=== PATIENT | female | born 1980 | race Caucasian/White ===

== ENCOUNTER 2019-08-04 22:32 | Inpatient (IN) | payer BC, OTHER ==
[~2019-08-04] VITALS: Ht 172.7 cm; Wt 75.8 kg
[2019-08-04 23:26] LABS: Basophils # (auto) 0 10 ^3/uL (0-0.2); Eosinophils # (auto) 0.2 10 ^3/uL (0-0.8); Eosinophils % (auto) 4.5 % (0.0-7.0); Hematocrit 38.2 % (36.0-46.0); Lymphocytes # (auto) 0.6 10 ^3/uL (0.4-5.4); Lymphocytes % (auto) 18.2 % (10.0-50.0); Mean Corpuscular Hemoglobin 36.1 pg (28.0-32.0); Mean Corpuscular Volume 106.1 fL (80.0-100.0); Monocytes # (auto) 0.5 10 ^3/uL (0-1.3); Monocytes % (auto) 13.6 % (0.0-12.0); Neutrophils # (auto) 2.2 10 ^3/uL (1.6-8.6); Neutrophils % (auto) 63.7 % (37.0-80.0); Nucleated Red Blood Cells % 0.1 %; Platelet Count (auto) 202 10^3/uL (140-450); Red Cell Distribution Width 14.8 % (11.8-14.3); White Blood Cell 3.5 10^3/uL (4.4-10.8)
[2019-08-04 23:41] LABS: Albumin 3.3 g/dL (3.4-5.0); Anion Gap 13 (5-15); BUN/Creatinine Ratio 5.7; Blood Urea Nitrogen 5 mg/dL (7-18); Calcium 7.5 mg/dL (8.5-10.1); Carbon Dioxide 26 mmol/L (21-32); Chloride 98 mmol/L (98-107); GFR African American 94 mL/min; GFR Non-African American 78 mL/min; Glucose 145 mg/dL (74-106); Sodium 137 mmol/L (136-145)
[2019-08-04 23:46] LABS: Alanine Aminotransferase 76 U/L (13-56); Alkaline Phosphatase 249 U/L (45-117); Aspartate Aminotransferase 375 U/L (15-37); Bilirubin, Total 2.5 mg/dL (0.2-1.0); Total Protein 7.4 g/dL (6.4-8.2)
[2019-08-04 23:50] LABS: Magnesium 0.5 mg/dL (1.6-2.6); Potassium 2.7 mmol/L (3.5-5.1)
[2019-08-05] MEDS ORDERED: POTASSIUM CHL 20 Meq TABLET PO ONE (00:15)
[2019-08-05] MEDS: MAGNESIUM SULFATE 1GM/100ML 100 ML IV SCH ×4 (00:26→17:00)
[2019-08-05] MEDS ORDERED: ONDANSETRON HCL 4 MG/2 ML VIAL IV ONE (00:30)
[2019-08-05] MEDS ORDERED: SODIUM CHLORIDE 0.9% 1,000 ML IV ONE (00:30)
[2019-08-05] MEDS: POTASSIUM CHL 20MEQ/100ML 100 ML IV SCH ×2 (00:48→03:14)
[2019-08-05] MEDS ORDERED: ACETAMINOPHEN 500 MG TAB PO ONE (01:00)
[2019-08-05] MEDS ORDERED: MORPHINE SULFATE 4 MG/ML SYR/VIAL IV PRN (01:45)
[2019-08-05] MEDS ORDERED: ONDANSETRON HCL 4 MG/2 ML VIAL IV PRN (01:45)
[2019-08-05] MEDS ORDERED: DOCUSATE SOD 100 MG CAP PO PRN (01:45)
[2019-08-05] MEDS ORDERED: TEMAZEPAM 15 MG CAP PO PRN (01:45)
[2019-08-05] MEDS ORDERED: DEXTROSE (50%) 50ML SYRG IV PRN (01:45)
[2019-08-05] MEDS ORDERED: LORazepam 0.5 MG TAB PO PRN ×2 (01:45→02:00)
[2019-08-05] MEDS: chlordiazePOXIDE HCL 25 MG CAP PO SCH ×6 (02:00→21:12)
[2019-08-05] MEDS: SODIUM CHLORIDE 0.9% 1,000 ML IV SCH ×3 (03:13→21:36)
[2019-08-05] MEDS: ACCU-CHEK COMFORT CURVE STRIP VI SCH ×2 (04:00→09:36)
[2019-08-05] MEDS: InsuLIN REG 1unit/0.01ml Soln (100units/ml) SC SCH ×2 (04:00→08:00)
--- NOTE | 2019-08-05 04:31 | NUR ---
Telemetry admit from [facility]AI[facility]ARR[facility]ED[facility] admitted to Telemetry unit after SBAR received. Patient oriented to Elizabeth Lomax, primary RN, unit, room, bed, and unit policies regarding patient care and visiting hours. Patient now on continuous telemetry monitoring, tele box 73# and telemetry reading on arrival to unit is NSR 72. Patient placed on bedside oxygen, weighed by bedscale and encouraged to call if they need something. All questions and concerns addressed, patient verbalized understanding. Note:
[2019-08-05] MEDS: LEVOTHYROXINE SODIUM 25 MCG TAB PO SCH (05:44)
[2019-08-05] MEDS ORDERED: LEVO125T7 PO (06:18)
[2019-08-05] MEDS ORDERED: TRAZ50TA2 PO (06:18)
[2019-08-05] MEDS ORDERED: MONT10TA34 PO (06:18)
[2019-08-05] MEDS ORDERED: BUPR-40 PO (06:18)
[2019-08-05] MEDS ORDERED: LORA-655 PO (06:18)
[2019-08-05] MEDS ORDERED: LEVOTHYROXINE SODIUM 88 MCG TAB PO SCH (07:00)
--- NOTE | 2019-08-05 08:08 | NUR ---
OPENING NOTES ASSUMED CARE OF PT. ALERT AND ORIENTED X4. NO S/S OF SOB OR DISTRESS NOTED. PT C/O OF LEG AND LOWER BACK PAIN. ASKING FOR "IBUPROFEN". STATED TYLENOL IS OK. WILL ADMINISTER ORDERED. INSTRUCTED PT TO CALL FOR ASSISTANCE. UPDATED PT ON POC. BED SET TO LOWEST/LOCKED POSITION. BEDSIDE RAILS UP X2. CALL LIGHT WITHIN REACH. PT VERBALIZED UNDERSTANDING. WILL CONTINUE TO MONITOR Q1HR AND PRN.
[2019-08-05 09:00] VITALS: BP 137/97
[2019-08-05 09:24] LABS: BUN/Creatinine Ratio 6.4; Calcium 7.3 mg/dL (8.5-10.1); Potassium 3.4 mmol/L (3.5-5.1)
[2019-08-05 09:26] LABS: Basophils # (auto) 0.1 10 ^3/uL (0-0.2); Basophils % (auto) 1.8 % (0.0-2.0); Eosinophils # (auto) 0 10 ^3/uL (0-0.8); Eosinophils % (auto) 1.3 % (0.0-7.0); Hematocrit 38.6 % (36.0-46.0); Hemoglobin 13.1 g/dL (12.2-16.2); Lymphocytes # (auto) 0.8 10 ^3/uL (0.4-5.4); Lymphocytes % (auto) 25.4 % (10.0-50.0); Mean Corpuscular Hemoglobin 36.7 pg (28.0-32.0); Monocytes # (auto) 0.5 10 ^3/uL (0-1.3); Monocytes % (auto) 17.2 % (0.0-12.0); Neutrophils # (auto) 1.7 10 ^3/uL (1.6-8.6); Neutrophils % (auto) 54.3 % (37.0-80.0); Nucleated Red Blood Cells % 0.1 %; Platelet Count (auto) 187 10^3/uL (140-450); Red Blood Cells 3.58 10^6/uL (4.0-5.20); White Blood Cell 3.1 10^3/uL (4.4-10.8)
[2019-08-05] MEDS: CYANOCOBALAMIN 500 MCG TAB PO SCH (09:34)
[2019-08-05] MEDS: ACETAMINOPHEN 325 MG TAB PO PRN (09:35)
[2019-08-05] MEDS: FOLIC ACID 1 MG TAB PO SCH (09:35)
[2019-08-05] MEDS: THIAMINE HCL 100 MG TAB PO SCH (09:36)
[2019-08-05] MEDS ORDERED: PANTOPRAZOLE 40 MG/10 ML VIAL INJ IV ONE (12:30)
[2019-08-05 13:00] VITALS: BP 134/95
[2019-08-05 14:33] LABS: Albumin 3.3 g/dL (3.4-5.0); Calcium 7.5 mg/dL (8.5-10.1); Magnesium 1.7 mg/dL (1.6-2.6); Potassium 4.1 mmol/L (3.5-5.1)
[2019-08-05 14:37] LABS: Bilirubin, Total 1.8 mg/dL (0.2-1.0); Total Protein 7.3 g/dL (6.4-8.2)
[2019-08-05 17:00] VITALS: BP 138/104
--- NOTE | 2019-08-05 21:23 | NUR ---
Gallbladder ultrasound completed.
[2019-08-05 22:00] VITALS: BP 133/95
[2019-08-06] MEDS: chlordiazePOXIDE HCL 25 MG CAP PO SCH ×6 (02:00→21:28)
[2019-08-06] MEDS: SODIUM CHLORIDE 0.9% 1,000 ML IV SCH ×2 (04:22→17:17)
[2019-08-06 05:05] VITALS: BP 108/77
--- NOTE | 2019-08-06 05:27 | NUR ---
PATIENT HAD EPISODES OF HEART GOING UP TO 130'S NOT SUSTAINING. PATIENT WOKE UP ABOUT 1:30 AM FEELING SHORT OF BREATH, HEART RATE 130'S. RESOLVED WITHOUT ANY INTERVENTION.
[2019-08-06] MEDS: LEVOTHYROXINE SODIUM 25 MCG TAB PO SCH (05:53)
[2019-08-06 06:05] LABS: Potassium 3.1 mmol/L (3.5-5.1)
[2019-08-06 06:11] LABS: Albumin 2.6 g/dL (3.4-5.0); BUN/Creatinine Ratio 6.5; Bilirubin, Total 1.7 mg/dL (0.2-1.0); Calcium 6.9 mg/dL (8.5-10.1); Total Protein 5.8 g/dL (6.4-8.2)
--- NOTE | 2019-08-06 07:30 | NUR ---
RECEIVED REPORT FROM NIGHT NURSE. PATIENT RESTING IN BED, NO DISTRESS NOTED. WILL CONTINUE TO MONITOR.
[2019-08-06 08:00] VITALS: BP 124/89
[2019-08-06 08:46] LABS: Hepatitis B Surface Antibody Negative
[2019-08-06 09:20] LABS: Hepatitis A Total Antibody Negative
[2019-08-06 09:35] LABS: Hepatitis B Core Total AB Negative; Hepatitis B Surface Antigen Negative (Negative); Hepatitis C Antibody Negative (Negative)
[2019-08-06] MEDS: PANTOPRAZOLE 40 MG/10 ML VIAL INJ IV SCH (10:09)
[2019-08-06] MEDS: FOLIC ACID 1 MG TAB PO SCH (10:09)
[2019-08-06] MEDS: CYANOCOBALAMIN 500 MCG TAB PO SCH (10:09)
[2019-08-06] MEDS: THIAMINE HCL 100 MG TAB PO SCH (10:10)
[2019-08-06] MEDS: ACETAMINOPHEN 325 MG TAB PO PRN (11:41)
[2019-08-06 12:00] VITALS: BP 119/91
[2019-08-06] MEDS ORDERED: POTASSIUM CHL 20 Meq TABLET PO ONE (13:00)
--- NOTE | 2019-08-06 13:03 | NUR ---
DOCTOR FLORES AT BEDSIDE.
--- NOTE | 2019-08-06 15:45 | NUR ---
Nutrition Assessment Notes Please refer to link for full assessment notes. Est Energy needs BW 70 [id number] kcals (25-30 kcal/kgBW) Est Protein needs: 70-84 gms/day (1.0-1.2 gm/kgBW) Will continue to monitor and reassess prn. Addendum: 08/06/19 at [address] Amended: Links added.
[2019-08-06 17:00] VITALS: BP 111/79
[2019-08-06 21:00] VITALS: BP 118/75
[2019-08-06] MEDS: metroNIDAZOLE 500MG/100ML 100 ML IV SCH (21:28)
[2019-08-06] MEDS: HYDROcodone-ACET 5/325MG TAB PO PRN (21:31)
[2019-08-07] MEDS: chlordiazePOXIDE HCL 25 MG CAP PO SCH ×4 (02:00→14:00)
[2019-08-07] MEDS: SODIUM CHLORIDE 0.9% 1,000 ML IV SCH ×2 (03:27→13:36)
[2019-08-07 05:00] VITALS: BP 114/84
[2019-08-07] MEDS: metroNIDAZOLE 500MG/100ML 100 ML IV SCH ×2 (05:40→14:00)
[2019-08-07] MEDS: LEVOTHYROXINE SODIUM 25 MCG TAB PO SCH (06:02)
[2019-08-07 06:23] LABS: Albumin 2.4 g/dL (3.4-5.0); Calcium 7.1 mg/dL (8.5-10.1); Potassium 3.2 mmol/L (3.5-5.1)
[2019-08-07 06:24] LABS: BUN/Creatinine Ratio 5.3
[2019-08-07 06:27] LABS: Bilirubin, Total 1.3 mg/dL (0.2-1.0); Total Protein 5.6 g/dL (6.4-8.2)
--- NOTE | 2019-08-07 07:00 | NUR ---
Opening Shift Note Received report on the patient. Awake lying in bed. Patient shows no signs of distress at this time. Discussed the plan of care with the patient. Bed in lowest position, side rails up x2, and the call light is within reach. Will continue to monitor.
[2019-08-07 09:00] VITALS: BP 139/90
[2019-08-07] MEDS ORDERED: cefTRIAXone 1GM/50ML D5W 50 ML IV SCH (09:00)
[2019-08-07] MEDS: PANTOPRAZOLE 40 MG/10 ML VIAL INJ IV SCH (10:43)
[2019-08-07] MEDS: FOLIC ACID 1 MG TAB PO SCH (10:43)
[2019-08-07] MEDS: THIAMINE HCL 100 MG TAB PO SCH (10:43)
[2019-08-07] MEDS: CYANOCOBALAMIN 500 MCG TAB PO SCH (10:44)
[2019-08-07] MEDS: HYDROcodone-ACET 5/325MG TAB PO PRN (10:44)
--- NOTE | 2019-08-07 12:39 | NUR ---
Dr Jordan at bedside. New orders received
[2019-08-07] MEDS ORDERED: POTASSIUM CHL 20 Meq TABLET PO ONE (12:45)
[2019-08-07 13:54] VITALS: BP 122/88
--- NOTE | 2019-08-07 15:16 | NUR ---
Discharge instructions given as ordered. Encourage to follow up with PMD as instructed. All questions and concerns addressed. Patient verbalized understanding. Medication reconciliation form completed and copy given to patient. Home medications held in Pharmacy returned to patient. IV removed with catheter intact, pressure dressing applied. Telemetry unit returned to ICU. Patient taken to vehicle via wheelchair with all personal belongings, accompanied by staff and family member. No distress noted at time of departure.
[2019-08-07] MEDS ORDERED: POTASSIUM CHL 20 Meq TABLET PO SCH (18:00)
== END 2019-08-07 15:12 | disposition home or self-care (01) | DRG 392 ==
LOC: EDBD 22:32 → ER 22:32 → TELE 22:33 → TELE-WESTW 08-05 04:05
PROVIDERS: ADMIT Hospitalist; ATTEND Family Medicine
DX: K52.9 Noninfective gastroenteritis and colitis, unspecified (principal); B19.10 Unspecified viral hepatitis B without hepatic coma; E87.6 Hypokalemia; F41.9 Anxiety disorder, unspecified; F32.9 Major depressive disorder, single episode, unspecified; I10 Essential (primary) hypertension; E03.9 Hypothyroidism, unspecified; E83.42 Hypomagnesemia; F10.10 Alcohol abuse, uncomplicated; D64.9 Anemia, unspecified; F41.0 Panic disorder [episodic paroxysmal anxiety]; K76.0 Fatty (change of) liver, not elsewhere classified; K80.20 Calculus of gallbladder without cholecystitis without obstruction; Z91.14 Patient's other noncompliance with medication regimen; Z79.890 Hormone replacement therapy
CPT/HCPCS: 36415; 74176; 76705; 80048; 80053; 80320; 82962; 83036; 83735; 84443; 84484; 84702; 85025; 86704; 86706; 86708; 86803; 87045; 87340; 87427; 87493; 96365; 96366; 96368; C9113; G0378; J0696; J3480; J3490

== ENCOUNTER 2024-04-28 16:48 | Emergency (ER) | payer BC, MEDICAID ==
[~2024-04-28] VITALS: Ht 172.7 cm; Wt 80.7 kg
[~2024-04-28 16:48] MED LIST: BUPR150T8 PO; LEVO125T7 PO; LORA-655 PO; MONT-8 PO; TRAZ-227 PO
[2024-04-28 16:55] VITALS: TEMP 98.5
[2024-04-28 16:58] VITALS: BP 150/94
[2024-04-28 17:02] VITALS: PULSE 78; RESP 16; O2SAT 99
--- NOTE | 2024-04-28 17:14 | ED.PDOC ---
History of Present Illness HPI Comments A 43 YEAR OLD FEMALE PRESENTS TO THE ED WITH COMPLAINT OF MEDICATION REFILL. PATIENT STATES SHE WOULD LIKE A MEDICATION REFILL FOR HER SYNTHROID 175MCG SINCE SHE HAS NOT TAKEN IT FOR 3 MONTHS. PATIENT DENIES FEVER, CHILLS, SHORTNESS OF BREATH, CHEST PAIN, ABDOMINAL PAIN, NAUSEA, VOMITING, HEADACHE, DIZZINESS OR OTHER COMPLAINTS. NO OTHER SYMPTOMS OR MODIFYING FACTORS AT THIS TIME. PATIENT IS ALERT, ORIENTED X 4, AND HAS STEADY GAIT. Chief Complaint: MEDICATION REFILL Time Seen by MD: 16:57 Primary Care Provider: PAUL TAMAYO Reviewed Notes: Nurses Notes, Medications, Allergies Allergies: Coded Allergies: NO KNOWN ALLERGIES (Unverified , 08/05/19) Home Meds Active Scripts Levothyroxine Sodium (Synthroid) 175 Mcg Tab, 1 TAB PO DAILY, #20 TAB Prov:ANTIONETTE MO 04/28/24 Reported Medications Montelukast Sodium (MONTELUKAST SODIUM) 10 Mg Tab, 1 TAB PO DAILY, #30 TAB 5 Refills 20 Lorazepam (Ativan) 0.5 Mg Tab, 1 TAB PO PRN PRN for ANXIETY, #30 TAB //20 Bupropion Hcl (Wellbutrin Sr) 150 Mg Tab, 1 TAB PO BID, #60 TAB 5 Refills 20 Levothyroxine Sodium (Levothyroxine Sodium) 125 Mcg Tab, 125 MCG PO QAM for 30 Days, MCG //20 Trazodone Hcl (Trazodone Hcl) 50 Mg Tab, 50 MG PO HS PRN for FOR INSOMNIA, MG 20 Information Source: Patient Mode of Arrival: Ambulatory Severity: None Timing: Months Duration: Since onset Prehospital treatment: None Medication Refill: Ran out of Medication, For: Other (MEDICATION REFILL FOR THY ROID MEDICATION) Past Medical History PAST MEDICAL HISTORY: Anxiety, Depression, HTN, Thyroid Surgical History: Denies all surgeries GYNECOLOGIST History: No Pertinent GYNECOLOGIST History Family History Family History: Reviewed,noncontributory to illness Social History Smoker: Cigarettes Alcohol: Denies ETOH Use Drugs: Denies Drug Use Lives In: Home Constitutional: reports: others (ANXIOUS ); denies: chills, diaphoresis, fatigue, fever, malaise, sweats, weakness EENTM: denies: blurred vision, double vision, ear bleeding, ear discharge, ear drainage, ear pain, ear ringing, eye pain, eye redness, hearing loss, mouth pain, mouth swelling, nasal discharge, nose bleeding, nose congestion, nose pain, photophobia, tearing, throat pain, throat swelling, voice changes, others Respiratory: denies: cough, hemoptysis, orthopnea, SOB at rest, shortness of breath, SOB with excertion, stridor, wheezing, others Cardiovascular: denies: chest pain, dizzy spells, diaphoresis, Dyspnea on exertion, edema, irregular heart beat, left arm pain, lightheadedness, palpitations, PND, syncope, others Gastrointestinal: denies: abdomen distended, abdominal pain, blood streaked bowels, constipated, diarrhea, dysphagia, difficulty swallowing, hematemesis, melena, nausea, poor appetite, poor fluid intake, rectal bleeding, rectal pain, vomiting, others Genitourinary: denies: abnormal vagina bleeding, burning, dyspareunia, dysuria, flank pain, frequency, hematuria, incontinence, pain, , vagina discharge, urgency, others Neurological: denies: dizziness, fainting, headache, left sided numbness, left sided weakness, numbness, paresthesia, pre-existing deficit, right sided numbnes s, right sided weakness, seizure, speech problems, tingling, tremors, weakness, others Musculoskeletal: denies: back pain, gout, joint pain, joint swelling, muscle pain, muscle stiffness, neck pain, others Integumetry: denies: bruises, change in color, change in hair/nails, dryness, laceration, lesions, lumps, rash, wounds, others Allergic/Immunocompromised: denies: Difficulty Healing, Frequent Infections, Hives, Itching, others Hematologic/Lymphatic: denies: anemia, blood clots, easy bleeding, easy bruising, swollen glands, others Endocrine: denies: excessive hunger, excessive sweating, excessive thirst, excessive urination, flushing, intolerance to cold, intolerance to heat, unexplained weight gain, unexplained weight loss, others Psychiatric: denies: anxiety, bipolar disorder, depression, hopeless, panic disorder, schizophrenia, sleepless, suicidal, others All Other Systems: Reviewed and Negative Physical Exam General Appearance: No Apparent Distress, Normal HEENT: Normal ENT Inspection, PERRL/EOMI, Pharynx Normal, TMs Normal Neck: Full Range of Motion, Non-Tender, Normal, Normal Inspection Respiratory: Chest Non-Tender, Lungs Clear, No Accessory Muscle Use, No Respiratory Distress, Normal Breath Sounds Cardiovascular: No Edema, No JVD, No Murmur, No Gallop, Normal Peripheral Pulses, Regular Rate/Rhythm Breast Exam: Deferred Gastrointestinal: No Organomegaly, Non Tender, No Pulsatile Mass, Normal Bowel Sounds, Soft Genitalia: Deferred Pelvic: Deferred Rectal: Deferred Extremities: No calf tenderness, Normal capillary refill, Normal inspection, Normal range of motion, Non-tender, No pedal edema Musculoskeletal : Apperance: Normal Neurologic: Alert, oil mixer II-XII nml as Tested, No Motor Deficits, Normal Affect, Normal Mood, No Sensory Deficits Cerebellar Function: Normal Reflexes: Normal Skin: Dry, Normal Color, Warm Peripheral Pulses: 2+ carotid (R), 2+ carotid (L) Lymphatic: No Adenopathy Was a procedure done? Was a procedure done?: No Differential Dx Considerations may include: MEDICATION REFILL, HISTORY OF HYPOTHYROIDISM X-Ray, Labs, Meds, VS Vital Signs Date Time Temp Pulse Resp B/P (MAP) Pulse Ox O2 Delivery O2 Flow Rate FiO2 04/28/24 17:02 78 16 99 Room Air* 0 21 04/28/24 16:58 98.5 78 16 150/94 (112) 99 04/28/24 16:55 78 16 99 Room Air 04/28/24 16:55 98.5 78 16 150/94 (112) 99 98.5 X-Ray, Labs, Meds, VS Comment EXTERNAL MEDICAL RECORDS REVIEWED: [NONE] INDEPENDENT HISTORIANS: [NONE] SOCIAL DETERMINANTS OF HEALTH: [NONE] LABS ORDERED: NONE REVIEWED AND INTERPRETED RESULTS: NONE IMAGING ORDERED: NONE TREATMENTS ORDERED: NONE PROCEDURES PERFORMED: NONE CRITICAL CARE TIME: NONE I HAVE DISCUSSED THE PATIENT WITH THE ATTENDING PHYSICIAN DR. ALLEN AND SHE AGREES WITH THE PATIENT'S PLAN OF CARE AND DISPOSITION. BASED ON HISTORY OF PRESENT ILLNESS, AND PHYSICAL EXAM, PATIENT WILL BE DISCHARGED HOME. DISCUSSED PLAN FOR DISCHARGE HOME WITH RX [SYNTHROID 175 MCG]. MEDICATION WARNINGS GIVEN. SHARED DECISION MAKING: PATIENT INSTRUCTED TO FOLLOW UP WITH PRIMARY CARE PROVIDER IN 1-2 DAYS FOR RE-EVALUATION OF SYMPTOMS. PATIENT VERBALIZES UNDERSTANDING TO RETURN TO ED FOR NEW OR WORSENING SYMPTOMS OR IF FOLLOW UP WITH PCP CANNOT BE OBTAINED. PATIENT FEELS COMFORTABLE GOING HOME AT THIS TIME. ALL QUESTIONS ADDRESSED AT TIME OF DISCHARGE. Time of 1ST Reevaluation: 17:26 Reevaluation 1ST: Improved Patient Education/Counseling: Diagnosis, Treatment, Need For Follow Up Family Education/Counseling: Diagnosis, Treatment, Need For Follow Up Medical Screening: No EMC Exist At This Time Departure 1 Departure Time of Disposition: 17:30 Impression: Primary Impression: Encounter for medication refill Additional Impression: History of hypothyroidism Disposition: HOME / SELF CARE / HOMELESS Condition: Stable Additional Instructions: FOLLOW-UP WITH PCP IN 1 TO 2 DAYS. TAKE MEDICATIONS PRESCRIBED. RETURN TO ED FOR ANY NEW OR WORSENING SYMPTOMS. e-Prescriptions Levothyroxine Sodium (Synthroid) 175 Mcg Tab 1 TAB PO DAILY, #20 TAB Prov: ANTIONETTE MO 04/28/24 Discharged With: Self, Spouse Critical Care Note Critical Care Time?: No Stability Stability form required: No I personally scribed for ANTIONETTE MO ([email or web address]) on 04/28/24 at 17:14. El ectronically submitted by Sukhjinder Mendez ([email or web address]). ANTIONETTE MO Apr 28, 2024 17:14
[2024-04-28] MEDS ORDERED: LEVO175T2 PO (17:24)
== END 2024-04-28 17:27 | disposition home or self-care (01) ==
LOC: ER 16:48
DX: I10 Essential (primary) hypertension (principal); E03.9 Hypothyroidism, unspecified; F41.9 Anxiety disorder, unspecified; Z76.0 Encounter for issue of repeat prescription; Z79.899 Other long term (current) drug therapy